=== PATIENT | male | born 1950 | race Caucasian/White ===

== ENCOUNTER → 2019-02-20 | Outpatient (CLI) | payer MEDICARE ==
--- NOTE | 2019-02-20 12:24 | EST ---
EXERCISE STRESS DATE OF SERVICE: 02/20/2019 AGE: 69 SEX: Male HT: 6'0" WT: 230 pounds PROTOCOL: Pro STAGE: III DURATION OF EXERCISE: 9 minutes HEART RATE REST: 63 BLOOD PRESSURE REST: 156/93 MAXIMUM HEART RATE ACHIEVED: 135 MAXIMUM BLOOD PRESSURE: 217/83 85% MPHR: 130 100% MPHR: 153 METS: 10 INDICATIONS: Hypertension. CLINICAL INFORMATION: Baseline EKG shows sinus rhythm with right bundle branch block. The patient exercised on Pro protocol for a total of 9 minutes achieving 10 METs, 88% of predicted maximal heart rate without chest pain or diagnostic ST-segment depression. CONCLUSIONS: 1. Good exercise tolerance. 2. Inconclusive EKG part of the stress test due to baseline EKG abnormalities. MMODL / IJN: [id number] /
--- NOTE | 2019-02-20 17:32 | ECHOF ---
Referral Reason:I10 essential hypertension; E78.00 High Cholestrol MEASUREMENTS -------- HEIGHT: 182.9 cm WEIGHT: 104.3 kg BP: RVIDd: 3.5 cm (< 3.3) IVSd: 1.3 cm (0.6 - 1.1) LVIDd: 5.3 cm (3.9 - 5.3) LVPWd: 1.5 cm (0.6 - 1.1) IVSs: 1.7 cm LVIDs: 3.8 cm LVPWs: 1.9 cm LAESV Index (A-L): 28.86 ml/m Ao Diam: 3.2 cm (2.0 - 3.7) AV Cusp: 1.7 cm (1.5 - 2.6) LA Diam: 4.1 cm (2.7 - 3.8) EPSS: 0.5 cm MV E Igor: 0.60 m/s MV DecT: 183 ms MV A Igor: 0.79 m/s MV E/A Ratio: 0.76 RAP: 5.00 mmHg RVSP: 28.19 mmHg MV EF SLOPE: 139.78 mm/s (70 - 150) MV EXCURSION: 2.33 cm (> 18.000) FINDINGS -------- Sinus rhythm. This was a technically adequate study. The left ventricular size is normal. There is moderate concentric left ventricular hypertrophy. O verall left ventricular systolic function is low-normal with, an EF between 50 - 55 %. The diastoli c filling pattern is normal for the age of the patient. The right ventricle is mildly enlarged. Left atrium is normal size by volume. The right atrial size is normal. Interatrial and interventricular septum intact. The aortic valve is trileaflet and appears structurally normal. There is no evidence of aortic regu rgitation. There is no evidence of aortic stenosis. Mild mitral regurgitation is present. Mild tricuspid regurgitation present. There is no evidence of pulmonary hypertension. The right v entricular systolic pressure, as measured by Doppler, is 28.19mmHg. Trace/mild (physiologic) pulmonic regurgitation. The aortic root size is normal. The inferior vena cava is mildly dilated. There is no pericardial effusion. CONCLUSIONS -------- 1. Sinus rhythm. 2. This was a technically adequate study. 3. The left ventricular size is normal. 4. There is moderate concentric left ventricular hypertrophy. 5. Overall left ventricular systolic function is low-normal with, an EF between 50 - 55 %. 6. The diastolic filling pattern is normal for the age of the patient. 7. Left atrium is normal size by volume. 8. The right atrial size is normal. 9. Interatrial and interventricular septum intact. 10. The aortic valve is trileaflet and appears structurally normal. 11. There is no evidence of aortic regurgitation. 12. There is no evidence of aortic stenosis. 13. Mild mitral regurgitation is present. 14. Mild tricuspid regurgitation present. 15. There is no evidence of pulmonary hypertension. 16. The right ventricular systolic pressure, as measured by Doppler, is 28.19mmHg. 17. Trace/mild (physiologic) pulmonic regurgitation. 18. The aortic root size is normal. 19. The inferior vena cava is mildly dilated. 20. There is no pericardial effusion. TANK TENDER: Felisa Wilson RDCS
== END ==
LOC: RADNMMAIN 10:20
PROVIDERS: ATTEND Family Medicine
DX: I08.1 Rheumatic disorders of both mitral and tricuspid valves (principal); R94.31 Abnormal electrocardiogram [ECG] [EKG]; I10 Essential (primary) hypertension; E78.00 Pure hypercholesterolemia, unspecified; Z82.49 Family history of ischemic heart disease and other diseases of the circulatory system
CPT/HCPCS: 93017; 93306

== ENCOUNTER → 2020-05-02 | Outpatient (CLI) | payer MEDICARE | END | disposition home or self-care (01) | LOC: LABWHC1 11:41 | PROVIDERS: ATTEND Family Medicine | DX: R55 Syncope and collapse (principal) | CPT/HCPCS: 36415; 93005 ==

== ENCOUNTER → 2020-06-26 | Outpatient (CLI) | payer MEDICARE ==
--- NOTE | 2020-06-26 14:18 | MR ---
EXAMINATION TYPE: MR shoulder RT wo con DATE OF EXAM: 06/26/2020 COMPARISON: Plain film 06/05/2020, prior right shoulder MRI 08/09/2012 HISTORY: Right shoulder pain TECHNIQUE: Multiplanar, multisequence imaging of the right shoulder is performed without contrast. FINDINGS: Suspect postop changes, there are tracks present along the humeral head not seen on prior s [place] MRI, these tracts show no radiodense correlate on plain film however, correlate for appropria te surgical history. Rotator Cuff: Attenuated as on prior exam, partial full-thickness tear may be present, sagittal image #21, Coronal image 18. Evaluation somewhat limited technically Acromioclavicular Joint: Some T2 bright signal at this level may be indicative of prior distal acromi al resection, some mild spurring is present at the acromion, distal clavicle. Fluid signal is present in the subacromial subdeltoid bursa Glenohumeral Joint: Shoulder is somewhat high riding, there is osteoarthritic change, marginal spurri ng Labrum: The labrum appears grossly intact given limitation of non-arthrogram study. Biceps Tendon: The long head of biceps is in normal location within bicipital groove. Bone marrow signal: Pseudocysts are present within the humeral head. Screw tracts are also present. Other: Some cartilage thinning suspected on the humeral head. IMPRESSION: Postop changes. The rotator cuff tendon is markedly attenuated, difficult to exclude at least a parti al tear. Osteoarthritic changes.
== END | disposition home or self-care (01) ==
LOC: RADMRIMAIN 13:08
PROVIDERS: ATTEND Orthopaedic Surgery
DX: M75.101 Unspecified rotator cuff tear or rupture of right shoulder, not specified as traumatic (principal); M19.011 Primary osteoarthritis, right shoulder; Z98.890 Other specified postprocedural states

== ENCOUNTER → 2020-10-10 | Day surgery (SDC) | payer MEDICARE ==
[2020-10-03 09:35] VITALS: BMI 30.6
--- NOTE | 2020-10-09 21:24 | HP ---
HISTORY AND PHYSICAL REASON FOR ADMISSION: Surgery scheduled 10/10/2020 HISTORY OF PRESENT ILLNESS: Chava Nunez is a 70-year-old gentleman seen with progressive right shoulder pain and weakness. We discussed options. He elected to proceed with arthroscopy. Consent obtained. PAST MEDICAL HISTORY: Hyperlipidemia, cardiac murmur, hypertension. PAST SURGICAL HISTORY: Right shoulder arthroscopy. MEDICATIONS: Pravastatin, warfarin, valsartan. ALLERGIES: NONE. SOCIAL HISTORY: Denies tobacco use. PHYSICAL EVALUATION OF THE RIGHT SHOULDER: Flexion is 90 degrees, abduction 70 degrees, external rotation is 50 degrees with weakness. Tenderness along the anterolateral acromion and rotator cuff insertion site. Impingement positive at 100 degrees. Drop-arm sign is positive. Distal neurovascular exam is intact. RADIOGRAPHS: Radiographs of the right shoulder revealed a cystic changes of the tuberosity. Right shoulder MRI revealed possible rotator cuff tear. IMPRESSION: 1. Right shoulder impingement with partial rotator cuff tear. 2. Hypertension. 3. Hyperlipidemia. PLAN: Right shoulder arthroscopy, decompression, arthroscopic rotator cuff repair and debridement. Surgery 10/10/2020. MMODL / IJN: [id number] /
[~2020-10-10] MED LIST: DEXAMETHASONE SOD PHOSPHATE 4 MG/ML 1 ML VIAL IV ONE; DEXAMETHASONE SOD PHOSPHATE 4 MG/ML 1 ML VIAL ONE; HYDROmorphone 0.5 MG/0.5 ML SYRINGE IVP PRN; LACTATED RINGERS 1,000 ML IV SCH; LIDOCAINE 1% (10MG/ML) FOR IV START INTRADERMA ONE; LIDOCAINE 1% INJ 10MG/ML (20 ML MDV) ONE; MIDAZOLAM 2 MG/2 ML VIAL IV PRN; MIDAZOLAM 2 MG/2 ML VIAL ONE; ONDANSETRON 4 MG/2 ML VIAL IVP ONE; PROPOFOL 10 MG/ML 20 ML VIAL IV ONE; ROPIVACAINE 5 MG/ML 30 ML VIAL ONE; SUCCINYLCHOLINE CHLORIDE 100 MG/5 ML SYR IV ONE; WATER FOR INJECTION, STERILE 10 ML VIAL IV ONE; ePHEDrine SULFATE/0.9% NACL/PF 50 MG/5 ML SYRINGE IV ONE; fentaNYL (PF) 50 MCG/ML 2 ML AMP ONE
[2020-10-10 10:33] LABS: INR 1.1 (<1.2); Prothrombin Time 11.2 sec (9.0-12.0)
--- NOTE | 2020-10-10 13:45 | P.OP ---
Date of Procedure: 10/10/20 Preoperative Diagnosis: Right shoulder rotator cuff tear Postoperative Diagnosis: 1. Right shoulder rotator cuff tear 2. Right shoulder impingement Procedure(s) Performed: 1. Right shoulder arthroscopic rotator cuff repair 2. Right shoulder arthroscopic subacromial decompression Implants: 4Arthrex swivel lock anchors Anesthesia: GETA, regional (Interscalene block) Surgeon: Fredy Campbell Dry Curer #1: Corky Tobin Estimated Blood Loss (ml): 11 Pathology: none sent Condition: stable Disposition: PACU Indications for Procedure: 70-year-old gentleman seen with progressive right shoulder pain. After treatment options were discussed, he elected to proceed with arthroscopy. Operative Findings: See description of procedure Description of Procedure: Patient underwent an interscalene block by department of anesthesia. The patient was then taken to the operative suite. The patient underwent a general anesthetic by the department of anesthesia. The patient was placed into a lateral position and secured. There was appropriate padding of the bony prominence. Right shoulder was then prepped and draped in normal sterile orthopedic fashion. We placed the extremity in 10 pounds of longitudinal traction. A posterior incision was now made for a posterior working portal site. The trocar and cannula were inserted into the glenohumeral joint. Arthroscopy was initiated. Spinal needle was now inserted anteriorly, to ascertain the anterior working portal site. An incision was now made in that area, a trocar was inserted followed by a probe. There were grade 2 chondromalacia changes of the glenohumeral joint. The biceps was absent. The labrum was diminutive throughout the shoulder without a tear being present. At this point instruments removed from glenohumeral joint. Utilizing the posterior working portal site, the trocar and cannula were inserted into the subacromial space. Arthroscopy initiated. I made an incision 2 fingerbreadths lateral to the acromion. I introduced my trocar followed by my ArthroCare ablator. I now began ablating thick subacromial bursal tissue, which exposed the undersurface of the anterior acromion. There was some spurring along the lateral border. I used a motorized bur and performed a subacromial decompression. There was good decompression noted. I now turned my attention to the rotator cuff tendon. I was able to visualize a previous repair along the distal supraspinatus area. The area was probed and it was stable with no re- tear. More anteriorly I discovered a moderate tear in the subscapularis tendon. The tear measured approximately 2. 53 centimeters. I made an assessory portal site to better evaluate that anteriorly. I debrided the margins getting down to stable tendon tissue. I introduced my motorized bur and abraded the footprint area, getting some petechial bleeding. I punched 2 holes medial for medial row fixation with the assistance of Corky PERALTA carefully tapping the punch with a mallet as I held the punch and the camera. I now introduced both anchors into the pre-punched holes and Corky PERALTA tapped them with the mallet as I held anchors and the camera. Corky PERALTA now screwed the anchors in place a while I held the anchor guide and camera. All 8 limbs of suture were now passed through good bites of rotator cuff tendon. I now punched 2 holes for lateral row fixation again I held the punch and camera while Corky PERALTA used a mallet to tap in the punch. We now passed sutures through both anchors and individually I introduced the anchors into the pre-punch holes I held the anchor guide in position with one hand holding the camera with the other hand while Corky PERALTA tensioned the sutures and screwed in the anchors one at a time. All residual suture limbs were now clipped. We had good compression of the tendon along the entire footprint. Instruments now removed from the portal sites. All portal sites were approximated with nylon suture. Sterile dressings were applied followed by a shoulder immobilizer. Corky PERALTA assisted in this complex case. The patient was awakened, transferred to a bed, and taken to recovery in stable condition.
[2020-10-10 13:53] VITALS: TEMP 97.1
[2020-10-10 13:58] VITALS: RESP 16
[2020-10-10 15:04] VITALS: BP 149/79
[2020-10-10 15:31] VITALS: PULSE 106
--- NOTE | 2020-10-10 20:35 | P.ANPRN ---
Procedure Note - Anesthesia - Nerve Block Performed Right Interscalene Single Time Out Performed: Yes Date of Procedure: 10/10/20 Procedure Start Time: 10:52 Procedure Stop Time: 11:00 Location of Patient: PreOp Indication: Acute Post-Operative Pain, Requested by Surgeon Sedation Type: Sedate with meaningful contact maintained Preparation: Sterile Prep Position: Supine Needle Types: Pajunk Needle Gauge: 21 Ultrasound used to visualize needle placement: Yes Ultrasound used to observe medication spread: Yes Blood Aspirated: No Pain Paresthesia on Injection Noted: No Resistance on Injection: Normal Image Stored and Saved: Yes Events: Uneventful and Well Tolerated (ropi .5% 20cc plus dexamethasone 4mg)
== END | disposition home or self-care (01) ==
LOC: OR 09:22
PROVIDERS: ATTEND Orthopaedic Surgery
DX: M75.101 Unspecified rotator cuff tear or rupture of right shoulder, not specified as traumatic (principal); M25.811 Other specified joint disorders, right shoulder; E78.5 Hyperlipidemia, unspecified; I10 Essential (primary) hypertension; R01.1 Cardiac murmur, unspecified; Z98.890 Other specified postprocedural states; G47.33 Obstructive sleep apnea (adult) (pediatric); F32.9 Major depressive disorder, single episode, unspecified; K21.9 Gastro-esophageal reflux disease without esophagitis; Z79.01 Long term (current) use of anticoagulants; Z79.899 Other long term (current) drug therapy
CPT/HCPCS: 64415; 76942; 85610; 29826; 29827; C1713 ×2; C1894; J2250; J1100; J0690; J2405; J2001; J3010; J2795; J0330; J2704

== ENCOUNTER 2023-07-26 13:39 | Emergency (ER) | payer MEDICARE ==
[2023-07-26 14:18] VITALS: RESP 16
--- NOTE | 2023-07-26 15:58 | ED ---
Extremity Problem HPI - General Chief complaint: Extremity Problem,Nontraumatic Stated complaint: Right Elbow Swollen Time Seen by Provider: 07/26/23 15:15 Source: patient Mode of arrival: ambulatory Limitations: no limitations - History of Present Illness Initial comments: Poses a 73-year-old gentleman with a history of cardiac disease and recently jannette gnosed with borderline diabetes presents emergency room complaints of pain redness and swelling to the right elbow. Patient states that a few weeks ago he noticed a lump on the elbow and didn't think anything of it. He started to develop pain and swelling and redness 3 days ago. He feels as though he might have a fever. He has pain with flexion and extension of the joint. Denies any puncture wounds or drainage. Denies any history of IV drug use. He is not immunocompromised. - Related Data Home Medications Medication Instructions Recorded Confirmed Escitalopram [Lexapro] 20 mg PO QAM 03/26/15 10/03/20 Lansoprazole [Prevacid] 30 mg PO QA 03/26/15 10/03/20 Pramipexole Di-HCl [Mirapex] 0.75 mg PO HS 03/26/15 10/03/20 Pravastatin Sodium [Pravachol] 40 mg PO QAM 03/26/15 10/03/20 Warfarin [Coumadin] 5 mg PO SUTUTHSA 03/26/15 10/03/20 Warfarin [Coumadin] 10 mg PO MOWEFR 03/26/15 10/03/20 allopurinoL [Zyloprim] 300 mg PO HS 06/13/15 10/03/20 Losartan Potassium 50 mg PO QAM 10/03/20 10/03/20 hydroCHLOROthiazide 25 mg PO QA 10/03/20 10/03/20 Previous Rx's Medication Instructions Recorded Docusate [Colace] 100 mg PO DAILY #14 capsule 10/10/20 HYDROcodone/APAP 7.5-325MG [[place] 1 each PO Q6HR PRN #21 tab 10/10/20 7.5] Cephalexin [Keflex] 500 mg PO Q6HR #40 cap 07/26/23 Sulfamethox-Tmp 800-160Mg [Bactrim 1 each PO Q12HR #20 tab 07/26/23 Ds] predniSONE 30 mg PO DAILY 3 Days #3 tab 07/26/23 Allergies Allergy/AdvReac Type Severity Reaction Status Date / Time clams Allergy Nausea & Verified 07/26/23 14:01 Vomiting Review of Systems ROS Statement: Those systems with pertinent positive or pertinent negative responses have been documented in the HPI. ROS Other: All systems not noted in ROS Statement are negative. Past Medical History Past Medical History: Atrial Fibrillation, GERD/Reflux, Hyperlipidemia, Hypertension, Osteoarthritis (OA), Pulmonary Embolus (PE), Skin Disorder, Sleep Apnea/CPAP/BIPAP Additional Past Medical History / Comment(s): USES C-PAP MACHINE, GOUT, RESTLESS LEG SYNDROME, "Some kind of skin disorder behind ear, going to [facility] for." History of Any Multi-Drug Resistant Organisms: None Reported Past Surgical History: Orthopedic Surgery Additional Past Surgical History / Comment(s): RIGHT ROTATOR CUFF REPAIR. COLONOSCOPY. Repair of detached retina, right eye. Past Anesthesia/Blood Transfusion Reactions: No Reported Reaction Past Psychological History: Anxiety, Depression Smoking Status: Never smoker Past Alcohol Use History: Daily Past Drug Use History: None Reported - Past Family History Brother(s) Family Medical History: Deep Vein Thrombosis (DVT) General Exam Limitations: no limitations Course Vital Signs 07/26/23 07/26/23 07/26/23 14:01 16:28 17:31 Temperature 98.7 F 99.8 F H 99.1 F Pulse Rate 85 Respiratory 16 Rate Blood Pressure 142/86 O2 Sat by Pulse 98 Oximetry - Reevaluation(s) Reevaluation #1: 07/26/23 19:50 The patient is well-appearing in the emergency room. Was evaluated bedside by Dr. Solis as well. Was decided to consult risk specialist Dr. Constantino information delivery analyst today regarding the swelling and erythema of the elbow. Patient's labs showed no significant leukocytosis the sed rate is slightly elevated. Spoke with Dr. Constantino who said it would be very unlikely (septic joint in this patient. She states that it could be a extreme bursitis that has started to become cellulitic. She does not feel as though the patient is to be admitted for a septic arthritis admission workup. I did discussed management with the patient and son at bedside. Discussed ice compression of the elbow joint and antibiotics. We discussed extensively the signs return to the emergency room. Patient is on Coumadin therefore we will forego NSAIDs at thist jennifer Medical Decision Making - Medical Decision Making Was pt. sent in by a medical professional or institution (FABIAN Arce, NEWS TECHNICAL DIRECTOR, urgent care, hospital, or prison...) When possible be specific @ -[No] Did you speak to anyone other than the patient for history (EMS, parent, family, police, friend...)? What history was obtained from this source @ -Son at bedside Did you review nursing and triage notes (agree or disagree)? Why? @ -[I reviewed and agree with nursing and triage notes] Were old charts reviewed (outside hosp., previous admission, EMS record, old EKG, old radiological studies, urgent care reports/EKG's, prison records)? Report findings @ -[No old charts were reviewed] Differential Diagnosis (chest pain, altered mental status, abdominal pain women, abdominal pain men, vaginal bleeding, weakness, fever, dyspnea, syncope, headach e, dizziness, GI bleed, back pain, seizure, CVA, palpatations, mental health, musculoskeletal)? @ -Bursitis, septic joint, cellulitis of the right elbow] EKG interpreted by me (3pts min.). @ -[EKG shows sinus rhythm at a rate of 72 bpm, right bundle branch block, no acute ST segment elevation X-rays interpreted by me (1pt min.). @ -[X-ray shows no acute fractures dislocations but does show swelling c onsistent in a bursitis pattern CT interpreted by me (1pt min.). @ -[None done] U/S interpreted by me (1pt. min.). @ -[None done] What testing was considered but not performed or refused? (CT, X-rays, U/S, labs)? Why? @ -[None] What meds were considered but not given or refused? Why? @ -[None] Did you discuss the management of the patient with other professionals (professionals i.e. FABIAN Arce, NEWS TECHNICAL DIRECTOR, lab, RT, psych nurse, certified social workers in health care, silk screen printing racker, teacher, jail officer, showcase trimmer)? Give summary @ -[I discussed management of this patient with risk specialist on-call today Dr. Constantino. She said that this would be very unlikely a septic joint and that is likely bursitis or bursitis turned into a cellulitis. I did discussed this conversation with attending ED physician Dr. Solis who also evaluated t he patient at bedside Was smoking cessation discussed for >3mins.? @ -[No] Was critical care preformed (if so, how long)? @ -[No] Were there social determinants of health that impacted care today? How? (Tamara elessness, low income, unemployed, alcoholism, drug addiction, transportation, low edu. Level, literacy, decrease access to med. care, [facility], rehab)? @ -[No] Was there de-escalation of care discussed even if they declined (Discuss DNR or withdrawal of care, Hospice)? DNR status @ -[No] What co-morbidities impacted this encounter? (DM, HTN, Smoking, COPD, CAD, Cancer, CVA, ARF, Chemo, Hep., AIDS, mental health diagnosis, sleep apnea, morbid obesity)? @ -[Borderline diabetic, coronary artery disease Was patient admitted / discharged? Hospital course, mention meds given and route, prescriptions, significant lab abnormalities, going to OR and other pertinent info. @ -[Patient is stable to follow up as an outpatient with treatment including antibiotics, prednisone and ice. I did discuss signs return to the emergency room with the patient and son at bedside. This was an extensive conversation. They are to follow-up with risk specialist as an outpatient. Undiagnosed new problem with uncertain prognosis? @ -[No] Drug Therapy requiring intensive monitoring for toxicity (Heparin, Nitro, Insulin, Cardizem)? @ -[No] Were any procedures done? @ -[No] Diagnosis/symptom? @ -[Bursitis, suspected cellulitis of the right elbow joint Acute, or Chronic, or Acute on Chronic? @ -[Acute Uncomplicated (without systemic symptoms) or Complicated (systemic symptoms)? @ -[default] Side effects of treatment? @ -[No] Exacerbation, Progression, or Severe Exacerbation? @ -[Progression Poses a threat to life or bodily function? How? (Chest pain, USA, LA, pneumonia, PE, COPD, DKA, ARF, appy, cholecystitis, CVA, Diverticulitis, Homicidal, Imelda cidal, threat to staff... and all critical care pts) @ -[No] - Lab Data Result diagrams: 07/26/23 16:11 07/26/23 16:11 Lab Results 07/26/23 07/26/23 07/26/23 Range/Units 16:11 16:11 16:11 WBC 10.5 (3.8-10.6) k/uL RBC 4.58 (4.30-5.90) m/uL Hgb 14.2 (13.0-17.5) gm/dL Hct 42.3 (39.0-53.0) % MCV 92.4 (80.0-100.0) fL MCH 31.0 (25.0-35.0) pg MCHC 33.6 (31.0-37.0) g/dL RDW 13.7 (11.5-15.5) % Plt Count 257 (150-450) k/uL MPV 7.7 Neutrophils % 76 % Lymphocytes % 15 % Monocytes % 6 % Eosinophils % 0 % Basophils % 1 % Neutrophils # 8.0 H (1.3-7.7) k/uL Lymphocytes # 1.6 (1.0-4.8) k/uL Monocytes # 0.6 (0-1.0) k/uL Eosinophils # 0.0 (0-0.7) k/uL Basophils # 0.1 (0-0.2) k/uL PT 13.7 H (10.0-12.5) sec INR 1.3 H (<1.2) APTT 28.6 (22.0-30.0) sec Sodium 135 L (137-145) mmol/L Potassium 4.1 (3.5-5.1) mmol/L Chloride 65 L* (98-107) mmol/L Carbon Dioxide 29 (22-30) mmol/L Anion Gap 41 mmol/L BUN 11 (9-20) mg/dL Creatinine 0.84 (0.66-1.25) mg/dL Est GFR (CKD-EPI)AfAm >90 (>60 ml/min/1.73 sqM) Est GFR (CKD-EPI)NonAf 88 (>60 ml/min/1.73 sqM) Glucose 129 H (74-99) mg/dL Plasma Lactic Acid Dl (0.7-2.0) mmol/L Calcium 9.6 (8.4-10.2) mg/dL Total Bilirubin 1.2 (0.2-1.3) mg/dL AST 29 (17-59) U/L ALT 20 (4-49) U/L Alkaline Phosphatase 80 (38-126) U/L C-Reactive Protein 6.9 H (<1.0) mg/dL Total Protein 7.0 (6.3-8.2) g/dL Albumin 4.2 (3.5-5.0) g/dL 07/26/23 Range/Units 16:44 WBC (3.8-10.6) k/uL RBC (4.30-5.90) m/uL Hgb (13.0-17.5) gm/dL Hct (39.0-53.0) % MCV (80.0-100.0) fL MCH (25.0-35.0) pg MCHC (31.0-37.0) g/dL RDW (11.5-15.5) % Plt Count (150-450) k/uL MPV Neutrophils % % Lymphocytes % % Monocytes % % Eosinophils % % Basophils % % Neutrophils # (1.3-7.7) k/uL Lymphocytes # (1.0-4.8) k/uL Monocytes # (0-1.0) k/uL Eosinophils # (0-0.7) k/uL Basophils # (0-0.2) k/uL PT (10.0-12.5) sec INR (<1.2) APTT (22.0-30.0) sec Sodium (137-145) mmol/L Potassium (3.5-5.1) mmol/L Chloride (98-107) mmol/L Carbon Dioxide (22-30) mmol/L Anion Gap mmol/L BUN (9-20) mg/dL Creatinine (0.66-1.25) mg/dL Est GFR (CKD-EPI)AfAm (>60 ml/min/1.73 sqM) Est GFR (CKD-EPI)NonAf (>60 ml/min/1.73 sqM) Glucose (74-99) mg/dL Plasma Lactic Acid Dl 0.9 (0.7-2.0) mmol/L Calcium (8.4-10.2) mg/dL Total Bilirubin (0.2-1.3) mg/dL AST (17-59) U/L ALT (4-49) U/L Alkaline Phosphatase (38-126) U/L C-Reactive Protein (<1.0) mg/dL Total Protein (6.3-8.2) g/dL Albumin (3.5-5.0) g/dL - EKG Data -: EKG Interpreted by Me - Radiology Data Radiology results: report reviewed, image reviewed Disposition Clinical Impression: Bursitis, Bursitis of elbow, Cellulitis Disposition: HOME SELF-CARE Condition: Fair Instructions (If sedation given, give patient instructions): Cellulitis (ED), Elbow Bursitis (ED) Prescriptions: Sulfamethox-Tmp 800-160Mg [Bactrim Ds] 1 each PO Q12HR #20 tab Cephalexin [Keflex] 500 mg PO Q6HR #40 cap predniSONE 30 mg PO DAILY 3 Days #3 tab Is patient prescribed a controlled substance at d/c from ED?: No If prescribed controlled substance>3 days was MAPS reviewed?: No Referrals: Franko Villegas MD [Primary Care Provider] - 1-2 days Nicole Constantino DO [Doctor of Osteopathic Medicine] - 1-2 days Nicanor Whitney MD [STAFF PHYSICIAN] - 1-2 days Time of Disposition: 19:58
[2023-07-26] MEDS ORDERED: ACETAMINOPHEN TAB 500 MG TAB PO STA (16:34)
--- NOTE | 2023-07-26 16:48 | XR ---
EXAMINATION TYPE: XR elbow complete RT DATE OF EXAM: 07/26/2023 4:20 PM CLINICAL INDICATION:Male, 73 years old with history of pain, swelling, erythema; [facility] COMPARISON: None TECHNIQUE: XR elbow complete RT; elbow was examined in AP, lateral, and oblique projections. FINDINGS: No evidence of any acute osseous pathology, or joint dislocation. There is a small joint ef fusion. There is soft tissue swelling over the olecranon process. IMPRESSION: Soft tissue swelling with joint effusion without evidence of fracture. Swelling most pron ounced milligram process correlate for bursitis. If there remains concern for fracture consider CT.
[2023-07-26 17:02] LABS: Basophils # (A) 0.1 k/uL (0-0.2); Basophils % (A) 1 %; Eosinophils % (A) 0 %; HCT 42.3 % (39.0-53.0); HGB 14.2 gm/dL (13.0-17.5); Lymphocytes # (A) 1.6 k/uL (1.0-4.8); Lymphocytes % (A) 15 %; MCHC 33.6 g/dL (31.0-37.0); MCV 92.4 fL (80.0-100.0); Mean Platelet Volume 7.7; Monocytes # (A) 0.6 k/uL (0-1.0); Monocytes % (A) 6 %; Neutrophils % (A) 76 %; Platelet Count 257 k/uL (150-450); RBC 4.58 m/uL (4.30-5.90); RDW 13.7 % (11.5-15.5); WBC 10.5 k/uL (3.8-10.6)
[2023-07-26 17:18] LABS: INR 1.3 (<1.2); Partial Thromboplastin Time 28.6 sec (22.0-30.0); Prothrombin Time 13.7 sec (10.0-12.5)
[2023-07-26 17:45] LABS: ALT 20 U/L (4-49); AST 29 U/L (17-59); African American GFR (CKD) >90 (>60 ml/min/1.73 sqM); Albumin 4.2 g/dL (3.5-5.0); Alkaline Phosphatase 80 U/L (38-126); Blood Urea Nitrogen 11 mg/dL (9-20); C Reactive Protein 6.9 mg/dL (<1.0); Calcium 9.6 mg/dL (8.4-10.2); Carbon Dioxide 29 mmol/L (22-30); Glucose 129 mg/dL (74-99); Non-African American GFR(CKD) 88 (>60 ml/min/1.73 sqM); Total Bilirubin 1.2 mg/dL (0.2-1.3)
[2023-07-26 17:48] LABS: Anion Gap 41 mmol/L; Potassium 4.1 mmol/L (3.5-5.1); Sodium 135 mmol/L (137-145)
[2023-07-26 17:56] VITALS: TEMP 99.1
[2023-07-26 18:05] LABS: Chloride 65 mmol/L (98-107)
[2023-07-26] MEDS ORDERED: ceFAZolin 1,000 MG VIAL (IM USE) IM STA (19:18)
[2023-07-26 21:38] VITALS: BP 147/77; PULSE 64
[2023-07-27 04:50] LABS: Erythrocyte Sedimentation Rate 58 mm/Hr (0-20)
== END 2023-07-26 20:22 | disposition home or self-care (01) ==
LOC: EC 13:39
DX: M70.31 Other bursitis of elbow, right elbow (principal); L03.113 Cellulitis of right upper limb; I45.10 Unspecified right bundle-branch block; I10 Essential (primary) hypertension; K21.9 Gastro-esophageal reflux disease without esophagitis; M10.9 Gout, unspecified; I48.91 Unspecified atrial fibrillation; E78.5 Hyperlipidemia, unspecified; M19.90 Unspecified osteoarthritis, unspecified site; F32.A Depression, unspecified; F41.9 Anxiety disorder, unspecified; Z79.01 Long term (current) use of anticoagulants; Z79.899 Other long term (current) drug therapy; Z86.711 Personal history of pulmonary embolism; Z91.09 Other allergy status, other than to drugs and biological substances
CPT/HCPCS: 36415; 93005; 80053; 85652; 83605; 85025; 85610; 85730; 86140; 87040; 73080; 99284; 96372; J0690

== ENCOUNTER → 2023-10-18 | Outpatient (CLI) | payer MEDICARE, OTHER ==
[2023-10-18 08:43] LABS: INR 2.3 (<1.2); Prothrombin Time 22.6 sec (10.0-12.5)
== END | disposition home or self-care (01) ==
LOC: LABWHC1 08:07
PROVIDERS: ATTEND Dentist Oral and Maxillofacial Surgery
DX: D68.32 Hemorrhagic disorder due to extrinsic circulating anticoagulants (principal)
CPT/HCPCS: 36415; 85610

== ENCOUNTER → 2024-04-05 | Outpatient (CLI) | payer MEDICARE, OTHER ==
--- NOTE | 2024-04-05 18:52 | MR ---
EXAMINATION TYPE: MR cervical spine wo con DATE OF EXAM: 04/05/2024 5:44 PM CLINICAL INDICATION: Male, 74 years old with history of M25.511,M54.2 RH SHOULDER CS; PHH, neck pain, right arm weakness and right shoulder pain. COMPARISON: None. TECHNIQUE: Multi planar, multi sequence imaging was performed utilizing: T1-weighted, T2-weighted, an d turbo inversion recovery imaging of the cervical spine. IV Contrast: cc (none if empty) FINDINGS: Alignment: The cervical vertebral bodies have preserved heights. Alignment is within normal limits gi steve patient positioning. Bones: Osteophytes and disc space narrowing most pronounced at the C5-C7 vertebral levels. Cord: The spinal cord is unremarkable with regards to their signal intensity and morphology. Discs: Intervertebral disc signal is maintained. C2-C3: No significant disc pathology. The spinal canal is patent. Bilateral facet and uncovertebral joint arthropathy are present with mild bilateral neural foraminal stenosis. C3-C4: A disc osteophyte complex is present with mild spinal canal stenosis. Bilateral facet and unc overtebral joint arthropathy are present with moderate to severe bilateral neural foraminal stenosis. C4-C5: No significant disc pathology. The spinal canal is patent. Bilateral facet and uncovertebral joint arthropathy are present with moderate to severe bilateral neural foraminal stenosis. C5-C6: No significant disc pathology. The spinal canal is patent. Bilateral facet and uncovertebral joint arthropathy are present with moderate to severe right and mild to moderate left neural foramina l stenosis. C6-C7: A disc osteophyte complex is present with moderate spinal canal stenosis. Bilateral facet and uncovertebral joint arthropathy are present with moderate to severe bilateral neural foraminal steno sis. C7-T1: No significant disc pathology. The spinal canal is patent. No neural foraminal stenosis. Other: Prominent right neck lymph node measuring up to 8 mm series 601 image 32 IMPRESSION: 1. No evidence for disc herniation or significant spinal canal stenosis. 2. 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 Multilevel moderate to severe n eural foraminal stenosis throughout the spine. [facility], , 04/05/2024 6:50 PM
--- NOTE | 2024-04-06 11:04 | MR ---
EXAMINATION TYPE: MR shoulder RT wo con DATE OF EXAM: 04/05/2024 COMPARISON: 06/26/2020 HISTORY: right shoulder pain, limited mobility, history of surgery TECHNIQUE: Multiplanar, multisequence imaging of the right shoulder is performed without contrast. FINDINGS: There are postsurgical changes of a rotator cuff repair however there is been interval development of a complete full-thickness tear of the supraspinatus with retraction of the musculotendinous junction . There is superior subluxation of the glenohumeral joint and there is a small glenohumeral joint eff usion. There is fluid in the subcutaneous acromial bursa either secondary to bursitis or glenohumeral joint fluid filling the subacromial bursa secondary to the complete supraspinatus tear. The infraspi natus and subscapularis tendons are intact. Biceps tendon is normal in signal intensity and position within the bicipital groove and the biceps a nchor is attached. There is no definite labral tear. 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 There is shoulder impingement. IMPRESSION: 1. Postsurgical change of prior rotator cuff repair involving the supraspinatus and to complete full- thickness tear of the supraspinatus tendon with retraction. 3. Superior subluxation of the glenohumeral joint. 4. Small glenohumeral joint effusion. 5. Moderate osteophytic change of the AC joint with shoulder impingement. 6. No evidence of labral injury or biceps tendon injury. [facility], Workstation: [facility], 04/06/2024 11:01 AM
== END | disposition home or self-care (01) ==
LOC: RADMRIMAIN 16:18
PROVIDERS: ATTEND Orthopaedic Surgery
DX: M25.811 Other specified joint disorders, right shoulder (principal); M48.02 Spinal stenosis, cervical region; M75.111 Incomplete rotator cuff tear or rupture of right shoulder, not specified as traumatic; M50.30 Other cervical disc degeneration, unspecified cervical region; Z98.890 Other specified postprocedural states
CPT/HCPCS: 72141